=== PATIENT | male | born 1980 | race Caucasian/White ===

== ENCOUNTER 2018-07-26 21:26 | Emergency (ER) | payer OTHER ==
[~2018-07-26] VITALS: Ht 177.8 cm; Wt 86.2 kg
[~2018-07-26 21:26] MED LIST: DIAZ10; DIAZ5; OXYACE5T PO; OXYC30; OXYC30 PO; OXYCODONE HCL; ROXICODONE
[2018-07-27 02:26] LABS: BASOPHILS ABSOLUTE AUTO 0.03 K/mm3 (0.00-0.23); BASOPHILS PERCENT AUTO 0 % (0-2); EOSINOPHILS ABSOLUTE AUTO 0.04 K/mm3 (0.00-0.68); EOSINOPHILS PERCENT AUTO 1 % (0-6); Hematocrit 40.7 % (37.0-53.0); Hemoglobin 13.5 g/dL (13.5-17.5); IMMATURE GRAN ABSOLUTE AUTO 0.02 K/mm3 (0.00-0.10); IMMATURE GRAN PERCENT AUTO 0 % (0-1); LYMPHOCYTES ABSOLUTE AUTO 1.21 K/mm3 (0.84-5.20); LYMPHOCYTES PERCENT AUTO 15 % (21-46); MONOCYTES ABSOLUTE AUTO 0.61 K/mm3 (0.16-1.47); MONOCYTES PERCENT AUTO 8 % (4-13); Mean Corpuscular HGB 29.2 pg (26.0-34.0); Mean Corpuscular HGB Conc 33.2 g/dL (31.5-36.5); Mean Corpuscular Volume 88 fL (80-100); Mean Platelet Volume 10.4 fL (9.1-12.4); NEUTROPHILS ABSOLUTE AUTO 6.14 K/mm3 (1.96-9.15); NEUTROPHILS PERCENT AUTO 76 % (41-73); Platelet Count 304 K/mm3 (150-400); RDW Coefficient Variation 12.1 % (11.7-14.2); RDW Standard Deviation 38.8 fL (35.1-46.3); Red Blood Cell Count 4.63 M/mm3 (4.30-5.90); White Blood Cell Count 8.05 K/mm3 (4.00-11.30)
[2018-07-27] MEDS ORDERED: PROM25 PO (03:08)
== END 2018-07-27 03:41 | disposition home or self-care (01) ==
LOC: ER 21:26
PROVIDERS: Emergency Medicine
DX: L02.415 Cutaneous abscess of right lower limb (principal); F17.200 Nicotine dependence, unspecified, uncomplicated
CPT/HCPCS: 36415; 83605; 85025; A9270-GY; J1170; J1885

== ENCOUNTER 2018-07-28 18:05 | Emergency (ER) | payer OTHER ==
[~2018-07-28] VITALS: Ht 177.8 cm; Wt 86.2 kg
[~2018-07-28 18:05] MED LIST changes: +PROM25 PO
== END 2018-07-28 19:04 | disposition home or self-care (01) ==
LOC: ER 18:05
DX: L03.115 Cellulitis of right lower limb (principal); Z87.891 Personal history of nicotine dependence
CPT/HCPCS: 96374; 99282-25

== ENCOUNTER 2020-05-31 15:58 | Emergency (ER) | payer OTHER ==
[~2020-05-31] VITALS: Ht 177.8 cm; Wt 86.2 kg
[2020-05-31] MEDS ORDERED: METH40 PO (16:17)
[2020-05-31] MEDS ORDERED: NARCAN4 M1 (17:32)
[2020-05-31] MEDS ORDERED: CEPH500 PO (17:32)
== END 2020-05-31 17:51 | disposition home or self-care (01) ==
LOC: ER 15:58
DX: S61.412A Laceration without foreign body of left hand, initial encounter (principal); X99.1XXA Assault by knife, initial encounter; Z91.09 Other allergy status, other than to drugs and biological substances; Z79.899 Other long term (current) drug therapy
CPT/HCPCS: 12002; 73120; 99284-25; A9270

== ENCOUNTER 2020-06-13 19:24 | Emergency (ER) | payer OTHER ==
[~2020-06-13] VITALS: Ht 177.8 cm; Wt 88.5 kg
[~2020-06-13 19:24] MED LIST changes: +CEPH500 PO; +METH40 PO; +NARCAN4 M1
== END 2020-06-14 00:52 | disposition home or self-care (01) ==
LOC: ER 19:24
DX: R60.0 Localized edema (principal); Z91.09 Other allergy status, other than to drugs and biological substances; Z87.891 Personal history of nicotine dependence
CPT/HCPCS: 73630; 93971; 99284-25

== ENCOUNTER 2022-12-25 11:48 | Emergency (ER) | payer OTHER ==
[~2022-12-25] VITALS: Ht 180.3 cm; Wt 90.7 kg
[2022-12-25 12:12] VITALS: BP 161/105
== END 2022-12-25 14:25 | disposition home or self-care (01) ==
LOC: ER 11:48
DX: Z76.0 Encounter for issue of repeat prescription (principal); Z79.899 Other long term (current) drug therapy; Z87.891 Personal history of nicotine dependence; Z88.8 Allergy status to other drugs, medicaments and biological substances
CPT/HCPCS: 99281; A9270

== ENCOUNTER 2022-12-26 07:12 | Emergency (ER) | payer OTHER ==
[~2022-12-26] VITALS: Ht 180.3 cm; Wt 90.7 kg
[2022-12-26 08:07] VITALS: BP 159/114
== END 2022-12-26 08:47 | disposition home or self-care (01) ==
LOC: ER 07:12
DX: Z76.0 Encounter for issue of repeat prescription (principal); Z87.891 Personal history of nicotine dependence
CPT/HCPCS: 99281; A9270

== ENCOUNTER 2023-03-12 08:10 | Emergency (ER) | payer OTHER ==
[~2023-03-12] VITALS: Ht 177.8 cm; Wt 90.7 kg
[2023-03-12 08:20] VITALS: BP 137/88
== END 2023-03-12 09:03 | disposition home or self-care (01) ==
LOC: ER 08:10
DX: Z02.89 Encounter for other administrative examinations (principal); Z79.891 Long term (current) use of opiate analgesic; Z91.048 Other nonmedicinal substance allergy status; Z87.891 Personal history of nicotine dependence
CPT/HCPCS: 99281; A9270

== ENCOUNTER 2023-03-13 07:05 | Emergency (ER) | payer OTHER ==
[~2023-03-13] VITALS: Wt 95.2 kg
[2023-03-13 07:41] VITALS: BP 142/83
== END 2023-03-13 07:58 | disposition home or self-care (01) ==
LOC: ER 07:05
DX: F11.90 Opioid use, unspecified, uncomplicated (principal); Z79.899 Other long term (current) drug therapy; Z91.048 Other nonmedicinal substance allergy status; Z87.891 Personal history of nicotine dependence
CPT/HCPCS: 99281; A9270

== ENCOUNTER 2023-05-10 07:24 | Emergency (ER) | payer OTHER ==
[~2023-05-10] VITALS: Ht 177.8 cm; Wt 90.7 kg
[2023-05-10 08:18] VITALS: BP 129/72
[2023-05-10] MEDS ORDERED: Methadone HCL 10 MG TAB PO ONE (08:20)
== END 2023-05-10 09:28 | disposition home or self-care (01) ==
LOC: ER 07:24
DX: Z76.0 Encounter for issue of repeat prescription (principal); F11.99 Opioid use, unspecified with unspecified opioid-induced disorder; Z87.891 Personal history of nicotine dependence; Z91.048 Other nonmedicinal substance allergy status
CPT/HCPCS: 99281; A9270

== ENCOUNTER 2023-09-12 08:01 | Emergency (ER) | payer OTHER ==
[~2023-09-12] VITALS: Ht 177.8 cm; Wt 90.7 kg
[2023-09-12 08:35] VITALS: BP 166/92
[2023-09-12] MEDS ORDERED: Methadone HCL 10 MG TAB PO ONE (08:55)
== END 2023-09-12 09:17 | disposition home or self-care (01) ==
LOC: ER 08:01
DX: Z76.0 Encounter for issue of repeat prescription (principal); Z87.891 Personal history of nicotine dependence; Z79.899 Other long term (current) drug therapy
CPT/HCPCS: 99281; A9270

== ENCOUNTER 2023-09-13 10:09 | Emergency (ER) | payer OTHER ==
[~2023-09-13] VITALS: Ht 177.8 cm; Wt 90.7 kg
[2023-09-13 10:44] VITALS: BP 185/96
[2023-09-13] MEDS ORDERED: Methadone HCL 10 MG TAB PO ONE (10:50)
== END 2023-09-13 11:11 | disposition home or self-care (01) ==
LOC: ER 10:09
DX: Z76.89 Persons encountering health services in other specified circumstances (principal); F11.90 Opioid use, unspecified, uncomplicated; Z79.899 Other long term (current) drug therapy; Z87.891 Personal history of nicotine dependence
CPT/HCPCS: 99281; A9270

== ENCOUNTER 2023-09-26 12:31 | Emergency (ER) | payer OTHER ==
[~2023-09-26] VITALS: Ht 177.8 cm; Wt 90.7 kg
[2023-09-26 12:39] VITALS: BP 150/93
[2023-09-26] MEDS ORDERED: Methadone HCL 10 MG TAB PO ONE (12:45)
== END 2023-09-26 13:20 | disposition home or self-care (01) ==
LOC: ER 12:31
DX: Z76.0 Encounter for issue of repeat prescription (principal); F11.90 Opioid use, unspecified, uncomplicated; Z79.899 Other long term (current) drug therapy
CPT/HCPCS: 99281; A9270

== ENCOUNTER 2023-09-27 11:14 | Emergency (ER) | payer OTHER ==
[~2023-09-27] VITALS: Ht 177.8 cm; Wt 90.7 kg
[2023-09-27 11:21] VITALS: BP 143/80
[2023-09-27] MEDS ORDERED: Methadone HCL 10 MG TAB PO ONE (11:35)
== END 2023-09-27 13:02 | disposition home or self-care (01) ==
LOC: ER 11:14
DX: Z76.89 Persons encountering health services in other specified circumstances (principal); F11.91 Opioid use, unspecified, in remission; Z87.891 Personal history of nicotine dependence; Z79.899 Other long term (current) drug therapy
CPT/HCPCS: 99281; A9270

== ENCOUNTER 2023-09-28 07:32 | Emergency (ER) | payer OTHER ==
[~2023-09-28] VITALS: Ht 177.8 cm; Wt 90.7 kg
[2023-09-28 07:42] VITALS: BP 139/71
[2023-09-28] MEDS ORDERED: Methadone HCL 10 MG TAB PO ONE (07:50)
== END 2023-09-28 08:16 | disposition home or self-care (01) ==
LOC: ER 07:32
DX: F11.91 Opioid use, unspecified, in remission (principal); Z76.0 Encounter for issue of repeat prescription; Z87.891 Personal history of nicotine dependence; Z79.899 Other long term (current) drug therapy
CPT/HCPCS: 99281; A9270

== ENCOUNTER 2023-11-08 09:51 | Emergency (ER) | payer OTHER ==
[~2023-11-08] VITALS: Ht 177.8 cm; Wt 97.1 kg
[2023-11-08 10:24] VITALS: BP 139/99
[2023-11-08] MEDS ORDERED: Methadone HCL 10 MG TAB PO ONE (10:40)
== END 2023-11-08 11:13 | disposition home or self-care (01) ==
LOC: ER 09:51
DX: Z76.0 Encounter for issue of repeat prescription (principal); Z87.891 Personal history of nicotine dependence; Z79.899 Other long term (current) drug therapy
CPT/HCPCS: 99281; A9270

== ENCOUNTER 2023-11-09 07:34 | Emergency (ER) | payer OTHER ==
[~2023-11-09] VITALS: Ht 177.8 cm; Wt 97.1 kg
[2023-11-09 07:54] VITALS: BP 133/85
[2023-11-09] MEDS ORDERED: Methadone HCL 10 MG TAB PO ONE (08:05)
== END 2023-11-09 08:25 | disposition home or self-care (01) ==
LOC: ER 07:34
DX: F11.91 Opioid use, unspecified, in remission (principal); Z76.0 Encounter for issue of repeat prescription; Z87.891 Personal history of nicotine dependence; Z79.899 Other long term (current) drug therapy
CPT/HCPCS: A9270

== ENCOUNTER 2023-11-21 12:08 | Emergency (ER) | payer OTHER ==
[~2023-11-21] VITALS: Ht 177.8 cm; Wt 97.5 kg
[2023-11-21 13:08] VITALS: BP 163/137
[2023-11-21] MEDS ORDERED: Methadone HCL 10 MG TAB PO ONE (13:15)
== END 2023-11-21 13:50 | disposition home or self-care (01) ==
LOC: ER 12:08
DX: Z76.89 Persons encountering health services in other specified circumstances (principal); F11.20 Opioid dependence, uncomplicated; Z87.891 Personal history of nicotine dependence; Z79.899 Other long term (current) drug therapy
CPT/HCPCS: 99281; A9270

== ENCOUNTER 2023-12-28 11:14 | Emergency (ER) | payer OTHER ==
[~2023-12-28] VITALS: Ht 180.3 cm; Wt 90.7 kg
[2023-12-28 12:06] VITALS: BP 129/93
== END 2023-12-28 14:29 | disposition home or self-care (01) ==
LOC: ER 11:14
DX: Z00.00 Encounter for general adult medical examination without abnormal findings (principal); Z87.891 Personal history of nicotine dependence; Z79.899 Other long term (current) drug therapy
CPT/HCPCS: 99282

== ENCOUNTER 2024-04-22 14:47 | Emergency (ER) | payer OTHER ==
[~2024-04-22] VITALS: Ht 177.8 cm; Wt 90.7 kg
[2024-04-22 15:05] VITALS: BP 138/87
[2024-04-22 16:05] LABS: BASOPHILS ABSOLUTE AUTO 0.06 K/mm3 (0.00-0.23); BASOPHILS PERCENT AUTO 1 % (0-2); EOSINOPHILS ABSOLUTE AUTO 0.33 K/mm3 (0.00-0.68); EOSINOPHILS PERCENT AUTO 5 % (0-6); Hemoglobin 14.4 g/dL (13.5-17.5); IMMATURE GRAN ABSOLUTE AUTO 0.05 K/mm3 (0.00-0.10); IMMATURE GRAN PERCENT AUTO 1 % (0-1); LYMPHOCYTES PERCENT AUTO 32 % (21-46); MONOCYTES ABSOLUTE AUTO 0.52 K/mm3 (0.16-1.47); MONOCYTES PERCENT AUTO 7 % (4-13); Mean Corpuscular HGB 29.9 pg (26.0-34.0); Mean Corpuscular HGB Conc 34.3 g/dL (31.5-36.5); Mean Corpuscular Volume 87 fL (80-100); NEUTROPHILS ABSOLUTE AUTO 3.98 K/mm3 (1.96-9.15); NEUTROPHILS PERCENT AUTO 55 % (41-73); RDW Coefficient Variation 13.2 % (11.7-14.2); RDW Standard Deviation 42.2 fL (35.1-46.3); Red Blood Cell Count 4.81 M/mm3 (4.30-5.90); White Blood Cell Count 7.24 K/mm3 (4.00-11.30)
[2024-04-22 16:17] LABS: Alanine Aminotransfer (ALT/SGP 26 U/L (12-78); Aspartate Aminotrans (AST/SGOT 23 U/L (12-37)
== END 2024-04-22 18:06 | disposition home or self-care (01) ==
LOC: ER 14:47
PROVIDERS: Physician Assistant
DX: Z02.89 Encounter for other administrative examinations (principal); Z79.891 Long term (current) use of opiate analgesic
CPT/HCPCS: 36415; 84450; 84460; 85025; 99282